=== PATIENT | male | born 1955 | race Caucasian/White ===

== ENCOUNTER 2022-02-01 13:28 | Outpatient (CLI) | payer OTHER | END 2022-02-01 14:00 | disposition home or self-care (01) | LOC: LAB 13:28 | PROVIDERS: ATTEND Internal Medicine | DX: U07.1 COVID-19 (principal); B34.1 Enterovirus infection, unspecified ==

== ENCOUNTER 2022-04-22 14:41 | Outpatient (CLI) | payer OTHER | END 2022-04-22 14:55 | disposition home or self-care (01) | LOC: LAB 14:41 | PROVIDERS: ATTEND Internal Medicine | DX: U07.1 COVID-19 (principal); D37.1 Neoplasm of uncertain behavior of stomach ==